=== PATIENT | male | born 1950 | race Caucasian/White ===

== ENCOUNTER 2020-06-29 08:44 | Observation (INO) | payer OTHER ==
--- NOTE | 2020-06-26 10:54 | HP ---
PATIENT: MAC JOINER MEDICAL RECORD: [id number] ACCOUNT: [id number] LOCATION:[facility] : 51 ADMISSION DATE: 06/29/20 PCP: HISTORY AND PHYSICAL EXAMINATION PREOPERATIVE HISTORY AND PHYSICAL HISTORY OF PRESENT ILLNESS: Mr. Joiner is a 69-year-old male with a 3.8 cm solitary right thyroid nodule FNA was [place] II. He has been admitted for right thyroid lobectomy, possible total thyroidectomy. PAST SURGICAL HISTORY: Includes a bladder surgery, lumbar fusion, colonoscopy. CURRENT MEDICATIONS: Include Tramadol, verapamil, imipramine, lorazepam. ALLERGY: TO SULFA, PENICILLIN. PHYSICAL EXAMINATION: GENERAL: Healthy appearing. FACE: Normal and symmetric. EYES: Sclerae and conjunctivae are normal. EARS: Canals and TMs normal. NOSE: No masses, polyps, or drainage. ORAL CAVITY AND OROPHARYNX: Tongue protrudes in the midline. Pharynx normal. NECK: No masses, no adenopathy. He does have a right thyroid nodule approximately 4 cm, raises when he swallows. CHEST: Clear. CARDIOVASCULAR: Regular rate and rhythm, no murmur. EXTREMITIES: Normal. IMPRESSION: Solitary right 3.8 cm thyroid nodule. PLAN: Right thyroid lobectomy, possible total thyroidectomy. TRANSINT:[id number] Voice Confirmation ID: [id number] DOCUMENT ID: [id number] CASH ANDERSEN MD at 1054 CC: [id number] DICTATION DATE: 06/25/20 1104 TERMINAL SUPERINTENDENT: 06/25/20 [id number] [place] [address]
[~2020-06-29] VITALS: Ht 167.6 cm; Wt 72.1 kg
[2020-06-29] VITALS (10 sets, daily range): BP systolic 130–169; BP diastolic 82–106; Ht 167.6 cm; Wt 72.1 kg
[~2020-06-29 08:44] MED LIST: ALOE VERA PO; ATIVAN0.5 MG PO; CALAN SR120 MG PO; OMEGA-3100 MG PO; TOFRANIL25 MG PO; ULTRAM50 MG PO
[2020-06-29 09:21] LABS: BASOPHILS 1.2 % (0-2); EOSINOPHILS 7.3 % (0-7); HEMATOCRIT 45.9 % (42.0-54.0); HEMOGLOBIN 15.4 g/dL (13.5-17.5); LYMPHOCYTES 25.5 % (15-50); MCH 28.1 pg (26.0-34.0); MCHC 33.5 g/dL (31.0-37.0); MCV 83.8 fL (80.0-100.0); MEAN PLATELET VOLUME 7.4 fL (7.4-10.4); MONOCYTES 7.5 % (2-11); NEUTROPHILS 58.5 % (40-80); PLATELET COUNT 267 10x3/uL (130-400); RBC 5.47 10x6/uL (4.20-6.10); WBC 8.8 10x3/uL (4.8-10.8)
[2020-06-29 09:25] LABS: ANION GAP 13.5 mmol/L (8-16); CALCIUM 9.3 mg/dL (8.5-10.1); CARBON DIOXIDE 26.6 mmol/L (21.0-32.0); CREATININE - SERUM 1.1 mg/dL (0.6-1.3); POTASSIUM - SERUM 4.1 mmol/L (3.5-5.1)
[2020-06-29] MEDS ORDERED: MECLIZINE HCL25 MG PO (10:09)
[2020-06-29] MEDS ORDERED: STOOL SOFTENER100 M1 PO (10:09)
--- NOTE | 2020-06-29 13:53 | NUR ---
PT MEETS DISCHARGE CRITERIA, ROOM ASSIGNED BUT NOT CLEAN, HOLDING UNTIL READY.
--- NOTE | 2020-06-29 14:23 | NUR ---
PT STATES HE IS HYPERGLYCEMIC, FEELS "LOW". FSBG TAKEN, RESULT 120 MG/DL
--- NOTE | 2020-06-29 14:40 | NUR ---
1435 ARRIVED TO ROOM 2234 FROM PACU FREQUENT VITAL SIGNS INITIATED
--- NOTE | 2020-06-29 19:30 | NUR ---
A&0 X 4, AMBULATED INDEPENDENTLY FROM RESTROOM. RECEIVED BEDSIDE REPORT.RN EMPTIED 35ML FROM JACOBY @ NECK INCISION. MEDICATION FOR TX OF INTERSTITIAL CYSTITIS. ALSO, REPORTS HE'S ALLERGIC TO ALMOST ALL ABX AND DOES NOT WISH TO RECEIVE ANCEF DURING ADMISSION. REPORTS HE WILL BE STARTING KEFLEX AFTER DISCHARGE AND THAT IS THE ONLY ABX HE CAN TOLERATE. PAIN/DISCOMFORT REPORTED @ INCISION SITE AND FROM PREEXISTING URINARY ISSUES. NO OTHER NEEDS VOICED, CPOC.
[2020-06-30 04:00] VITALS: BP 159/108
--- NOTE | 2020-06-30 05:11 | NUR ---
I have reviewed this patient and I concur with the Shift Assessment completed by the Licensed Practical Nurse today this shift.
--- NOTE | 2020-06-30 08:07 | OP ---
PATIENT NAME: MAC JOINER MEDICAL RECORD: [id number] :52 LOCATION:[id number] ADMISSION DATE:06/29/20 SURGEON: NICO ANDERSEN MD DATE OF OPERATION: 06/29/2020 PREOPERATIVE DIAGNOSIS: Right thyroid nodule, 4 cm. POSTOPERATIVE DIAGNOSIS: Right thyroid nodule, 4 cm. PROCEDURE: Right thyroid lobectomy. SURGEON: Nico Andersen MD ANESTHESIA: General orotracheal. BLOOD LOSS: 10 mL. SPECIMENS: Right thyroid lobe. DRAINS: A single JACOBY through a separate stab incision inferior to the wound. COMPLICATIONS: None. FROZEN SECTION DIAGNOSIS: Multinodular goiter, benign. DESCRIPTION OF PROCEDURE: He was brought to the operating room and placed in supine position, sedated and intubated by anesthesia. His eyes were taped. Head drape was applied. He was positioned, prepped and draped in the usual sterile fashion for thyroid surgery. Area for the incision was injected with less than 1% lidocaine and 1:100,000 epinephrine, less than 1 mL. Horizontal skin incision was made about chcf between the cricoid and the sternal notch. Large right thyroid nodule was easily palpable and visible little tracheal deviation to the left. Incision was taken with a 15-blade through the skin and a spatula tip cautery on a setting of 15 was used to take the incision down through the platysma. Then, flaps were elevated superiorly and inferiorly and 4 separate 2-0 silk stick ties were used for retraction sutures. Fascia was divided in the midline. Straps were divided in the midline and then strap musculature was lifted up on both sides, maybe a little bit of nodularity to the left side, but nothing significant, just a little bit lumpy feeling. The right side obviously had very large inferior nodule. The fascia was dissected off. [employer] was used to retract the sternocleidomastoid to the side and the lobe was dissected out and then just rolled out with a finger. It was really large nodule. Ultrasound report was 4 cm, but it was seemed significantly larger than that. This was rotated medially with the gland and then it was large enough this was quite easy, which was blunt dissection. Then dissecting inferiorly, I was able to preserve and not manipulate the recurrent laryngeal nerve. Inferior parathyroid was identified and preserved. Then, the superior pedicle was taken down with a clip income tax preparer, combination of 2-0 and 3-0 silk ties. Once that was retracted inferiorly, allowed more rotation of the gland to take down the small vessels at the Choudhury's ligament with bipolar cautery and then it was dissected to near the midline. This was tied off with 2-0 silk tie and a thin portion of the isthmus. This was sent for frozen section, which returned benign multinodular goiter. The wound was inspected. Some Surgicel was placed in the Choudhury's ligament area. A separate drain was placed through a separate stab incision inferior to the wound and the strap muscles were approximated with a OPERATIVE REPORT [id number] MAC JOINER couple of 3-0 Vicryls, interrupted sutures in the midline and then a platysma layer was closed with interrupted 3-0 Vicryl. The skin was closed with a running subcuticular 6-0 Prolene. Steri-Strips and Mastisol were applied. A 2-0 drain stitch was applied. He was awakened, extubated, and transported to recovery. Had good voice in recovery. No complications. COUNTS: Correct. TRANSINT:[id number] Voice Confirmation ID: [id number] DOCUMENT ID: [id number] NICO ANDERSEN MD at 0807 CC: [id number] DICTATION DATE: 06/29/20 140 CASE SPECIALIST: 06/29/20 1734 ADM IN [facility] [address] [place] [address]
[2020-06-30] MEDS ORDERED: HYDROCODON-ACE1 EAC7 PO (08:23)
--- NOTE | 2020-06-30 09:19 | NUR ---
SALINE LOCK REMOVED AND DRESSING APPLIED, DISCHARGE PAPERS AND PRESCRIPTION GIVEN TO PATIENT AND AND TO CAR VIA W/C.
== END 2020-06-30 09:45 | disposition home or self-care (01) ==
LOC: D.OPS 08:44 → D.MS 13:57 → OBSVTIME 14:50 → D.MS 14:50 → D.OPS 14:50 → D.MS 06-30 09:45
PROVIDERS: Anesthesiology; ADMIT Otolaryngology; ATTEND Otolaryngology
DX: E04.1 Nontoxic single thyroid nodule (principal)